=== PATIENT | female | born 1995 | race Two or more races ===

== ENCOUNTER 2016-10-28 20:43 | Emergency (ER) | payer MEDICAID, OTHER ==
[~2016-10-28] VITALS: Ht 167.6 cm; Wt 68.0 kg
--- NOTE | 2016-10-28 20:50 | NUR ---
TO BED 2 A 21 YO FEMAL E WIL AND PER EMS PATIENT "WALKED INTO [employer] STATION AND STATED "I WANT TO KILL MYSELF." PER PATIENT, SHE SAID SHE WANTS TO JUMP INTO THE TUB AND SLICE HER WRIST". PATIENT IS , SHE SAID SHE DOESNT KNOW HER LMP, AOG. PER EMS REPORT, PATIENT IS 8MONTHS . PATIENT DENIES HI AND DENIES ANY PLAN TO HURT THE BABY. NAD NOTED. VSS. NONDIAPHORETIC. SAFETY AND SUICIDE PRECAUTIONS OBSERVED. CLOSELY MONITORED.
--- NOTE | 2016-10-28 21:03 | NUR ---
CARPET REPAIRER AT BEDSIDE TO DRAW BLOOD.
[2016-10-28 21:04] LABS: APPEARANCE,URINE Clear (CLEAR); BILIRUBIN,URINE Negative (NEGATIVE); BLOOD, URINE Negative Ery/uL (NEGATIVE); COLOR,URINE Yellow (YELLOW); KETONES,URINE Negative (NEGATIVE); LEUKOCYTE ESTERASE ,URINE Small (NEGATIVE); NITRITE, URINE Negative (NEGATIVE); PROTEIN,URINE Negative (NEGATIVE); UGLUCOSE Negative (NEGATIVE); UROBILINOGEN,URINE 0.2 EU/dL (0.2)
[2016-10-28 21:07] LABS: BASOPHILS % (AUTO) 0.3 % (0.0-2.0); EOSINOPHILS # (AUTO) 0.1 /CMM (0.0-0.7); EOSINOPHILS % (AUTO) 0.6 % (0.0-6.0); HEMATOCRIT 35 % (33-45); HEMOGLOBIN 11.4 g/dL (11.5-14.8); LYMPHOCYTES # (AUTO) 1.3 /CMM (0.8-4.8); MEAN CORPUSCULAR HEMOGLOBIN 29 PG (26.0-33.0); MEAN CORPUSCULAR HGB CONC 33 g/dl (31.0-36.0); MEAN CORPUSCULAR VOLUME 88 fL (82-100); MONOCYTES # (AUTO) 0.9 /CMM (0.1-1.30); MONOCYTES % (AUTO) 9.7 % (2.0-12.0); NEUTROPHILS # (AUTO) 7.2 /CMM (1.8-8.9); NEUTROPHILS % (AUTO) 75.4 % (43.0-81.0); PLATELET COUNT (AUTO) 208 /CMM (150-450); RED BLOOD CELL COUNT(AUTO) 3.97 MIL/uL (4.0-5.2); WHITE BLOOD COUNT (AUTO) 9.5 K/uL (4.3-11.0)
--- NOTE | 2016-10-28 21:10 | NUR ---
DR BOOTH AT BEDSIDE TO EVAL.
[2016-10-28 21:18] LABS: BACTERIA,URINE 1+ /HPF (None Seen); RBC,URINE 0-2 /HPF (0-2); SQUAMOUS EPITHELIAL CELL,UR Few /HPF (None Seen)
[2016-10-28 21:19] LABS: MUCUS,URINE Moderate /LPF (None Seen)
[2016-10-28 21:21] LABS: CALCIUM, SERUM 8.6 mg/dL (8.5-10.1); CARBON DIOXIDE 24 mmol/L (21-32); CHLORIDE 103 mmol/L (98-107); CREATININE 0.6 mg/dL (0.6-1.3); GLUCOSE 74 mg/dL (74-106); POTASSIUM 3.8 mmol/L (3.5-5.1); SODIUM SERUM 137 mmol/L (136-145); UREA NITROGEN, BLOOD 8 mg/dL (7-18)
[2016-10-28 21:27] LABS: ALANINE AMINOTRANSFERASE 14 U/L (12-78); ALBUMIN 2.7 g/dL (3.4-5.0); ALCOHOL, BLOOD < 3 mg/dL (0-0); ALKALINE PHOSPHATASE 191 U/L (46-116); ASPARTATE AMINOTRANSFERASE 21 U/L (15-37); BILIRUBIN,DIRECT 0.1 mg/dL (0.0-0.2); BILIRUBIN,TOTAL 0.4 mg/dL (0.2-1.0); TOTAL PROTEIN, SERUM 6.4 g/dL (6.4-8.2)
[2016-10-28 21:30] LABS: ACETAMINOPHEN < 2 ug/ml (10-30)
--- NOTE | 2016-10-28 21:30 | NUR ---
spoke with patient, therapeutic communication used and patient agreed to safety contract that she wont hurt herself.
--- NOTE | 2016-10-28 22:05 | NUR ---
Patient discharged to home via taxi in stable condition. Written and verbal after care instructions given. Patient verbalizes understanding of instruction. Patient is ambulatory with steady gait, no further complaints.
[2016-10-28 22:10] VITALS: BP 125/69
== END 2016-10-28 22:10 | disposition home or self-care (01) ==
LOC: ER 20:44
DX: O99.340 Other mental disorders complicating pregnancy, unspecified trimester (principal); F41.9 Anxiety disorder, unspecified; R45.851 Suicidal ideations; F31.9 Bipolar disorder, unspecified; Z3A.00 Weeks of gestation of pregnancy not specified
CPT/HCPCS: 36415; 80048; 80076; 80305; 80329; 81001; 84703; 85025; 99284; A4606; G0480 ×2; Z7610; 81000-TC

== ENCOUNTER 2022-11-20 21:12 | Emergency (ER) | payer MEDICAID, OTHER | END 2022-11-20 22:20 | disposition left against medical advice (07) | LOC: ER 21:14 | DX: Z53.21 Procedure and treatment not carried out due to patient leaving prior to being seen by health care provider (principal) ==

== ENCOUNTER 2023-01-31 22:11 | Emergency (ER) | payer MEDICAID ==
[~2023-01-31] VITALS: Ht 157.5 cm; Wt 65.8 kg
[2023-01-31] MEDS ORDERED: DOXY-326 PO (23:17)
[2023-01-31] MEDS ORDERED: CEFTRIAXONE 500 MG VIAL ONE (23:56)
[2023-01-31] MEDS ORDERED: LIDOCAINE /MPF 1% VIAL 5 ML VIAL ONE (23:59)
[2023-02-01 00:05] VITALS: BP 119/79; TEMP 99; O2SAT 100
[2023-02-01] MEDS: CEFTRIAXONE 500 MG VIAL IM ONE (00:05)
== END 2023-02-01 00:06 | disposition home or self-care (01) ==
LOC: ER 22:19
DX: T19.2XXA Foreign body in vulva and vagina, initial encounter (principal); F31.9 Bipolar disorder, unspecified; Z60.2 Problems related to living alone; W44.8XXA Other foreign body entering into or through a natural orifice, initial encounter
CPT/HCPCS: J0696; J3490